=== PATIENT | female | born 1995 | race African-American/Black ===

== ENCOUNTER 2017-03-22 18:44 | Emergency (ER) | payer MEDICAID ==
[~2017-03-22] VITALS: Ht 177.8 cm; Wt 98.9 kg
[2017-03-22 18:51] VITALS: BP 117/67
[2017-03-22] MEDS ORDERED: CLOTRIMAZOLE15 GM TOPIC (19:39)
[2017-03-22] MEDS ORDERED: HYDROCORTISONE30 G2 TP (19:39)
--- NOTE | 2017-03-22 19:39 | Emergency Room Report ---
History of Present Illness General Chief Complaint: Skin Rash/Abscess Source: Patient Present Illness HPI 22 YO Female presents to the ED c/o itchy rash on anterior chest and under the right breast x 7 days. Denies lesions/rashes elsewhere on the body. Denies new medications or body washes or creams. Denies swelling of the lips, tongue , throat or airway. Denies wheezing, or shortness of breath. Denies recent travel , recent illness or ill contacts. denies blisters, oral lesions, or sloughing of the skin. Pt. reports being 9 months . pt. states she has had some increased outdoor activities the last few days. pt. denies individual lesions on the skin. pt. denies fevers , chills, crusting, open wounds, or increased temperature to palpation. denies nipple d/c or pain. Denies CP, Palpitations, LOC, AMS, dizziness, Changes in Vision, Sensation, paresthesias, or a sudden severe headache. Allergies: Coded Allergies: No Known Allergies (Unverified , 03/22/17) Patient History Past Medical History: see triage record Past Surgical History: none Pertinent Family History: none Now: Yes - 9 months Reviewed Nursing Documentation: PMH: Agreed, PSxH: Agreed Nursing Documentation-PMH Past Medical History: No Stated History Review of Systems All Other Systems: negative except mentioned in HPI Physical Exam Vital Signs Date Time Temp Pulse Resp B/P (MAP) Pulse Ox O2 Delivery O2 Flow Rate FiO2 03/22/17 18:51 97.9 88 15 117/67 98 Room Air Sp02 EP Interpretation: reviewed, normal General Appearance: no apparent distress, alert, GCS 15, non-toxic Head: normocephalic, atraumatic Eyes: bilateral eye normal inspection, bilateral eye PERRL ENT: hearing grossly normal, normal pharynx, no angioedema, normal voice, other - no oral lesions, no swelling of the lips or tongue. Neck: full range of motion, supple/symm/no masses Respiratory: lungs clear, normal breath sounds, speaking full sentences Cardiovascular #1: regular rate, rhythm Musculoskeletal: back normal, gait/station normal, normal range of motion, non- tender Neurologic: alert, oriented x3, responsive, motor strength/tone normal, sensory intact, speech normal Psychiatric: judgement/insight normal, memory normal, mood/affect normal Skin: normal color, warm/dry, well hydrated, rash - blanching erythematous plaques to the upper anterior chest area, no blisters or vesicles. non blanching erythematous plaque with well defined border with annular appearance under the right breast, no increased temperature to palpation. no swelling noted. no nipple d/c. Lymphatic: no adenopathy Medical Decision Making PA Attestation Dr. Finch is my supervising Physician whom patient management has been discussed with. Diagnostic Impression: Primary Impression: Rash and other nonspecific skin eruption ER Course 22 YO Female presents to the ED c/o itchy rash on anterior chest and under the right breast x 7 days. Denies lesions/rashes elsewhere on the body. Denies new medications or body washes or creams. Denies swelling of the lips, tongue , throat or airway. Denies wheezing, or shortness of breath. Denies recent travel , recent illness or ill contacts. denies blisters, oral lesions, or sloughing of the skin. Pt. reports being 9 months . pt. states she has had some increased outdoor activities the last few days. pt. denies individual lesions on the skin. pt. denies fevers , chills, crusting, open wounds, or increased temperature to palpation. denies nipple d/c or pain. Denies CP, Palpitations, LOC, AMS, dizziness, Changes in Vision, Sensation, paresthesias, or a sudden severe headache. Ddx considered but are not limited to cellulitis, scabies, shingles, varicella, dermatitis, urticaria, eczema, tinea, viral exanthem, SJS Vital signs: are WNL, pt. is afebrile H&PE are most consistent with dermatitis, appearance for rash under right breast is suspicious for fungal infection. ORDERS: none required at this time, the diagnosis is clinical ED INTERVENTIONS: None required at this time. -d/w pt. that will d/c with conservative treatment for her symptoms, that if symptoms persist, recommend Diplomatic Courier evaluation. DISCHARGE: At this time pt. is stable for d/c to home. Will provide printed patient care instructions, and any necessary prescriptions. Care plan and follow up instructions have been discussed with the patient prior to discharge. Last Vital Signs Date Time Temp Pulse Resp B/P (MAP) Pulse Ox O2 Delivery O2 Flow Rate FiO2 03/22/17 18:51 97.8 88 15 117/67 98 Room Air Disposition: HOME, SELF-CARE Condition: Stable Scripts Clotrimazole* (LOTRIMIN*) 15 Gm Cream..g. 1 APPLIC TOPIC TWICE A DAY, #15 GM Prov: Dominique Pisano 03/22/17 Hydrocortisone (Hydrocortisone Cream 2.5%) Y Cream.appl 1 APPLIC TP BID, #28.3 GM Prov: Dominique Pisano 03/22/17 Referrals: [facility],REFERRING (PCP) Patient Instructions: Rash Additional Instructions: Take medications as directed. Follow up with a Primary Care Provider in 3-5 days, even if your symptoms have resolved. --Please review list of primary care clinics, if you do not already have a primary care provider Return sooner to ED if new symptoms occur, or current symptoms become worse. - Please note that this Emergency Department Report was dictated using [employer] technology software, occasionally this can lead to erroneous entry secondary to interpretation by the dictation equipment. Dominique Pisano Mar 22, 2017 19:38
[2017-03-22 19:56] VITALS: BP 130/80
== END 2017-03-22 19:59 | disposition home or self-care (01) ==
LOC: EMR 19:04
DX: R21 Rash and other nonspecific skin eruption (principal)
CPT/HCPCS: 99284